=== PATIENT | male | born 1970 | race Caucasian/White ===

== ENCOUNTER 2016-04-20 20:11 | Inpatient (IN) ==
[2016-04-20] MEDS ORDERED: Clindamycin 600 MG/50 ML 600 MG/50 ML IV.SOLN IVPB ONE (21:37)
[2016-04-20] MEDS ORDERED: 0.9 % Sodium Chloride 500 ML IV.SOLN IV ONE (21:37)
--- NOTE | 2016-04-20 22:04 | Emergency Department Note ---
Disposition Clinical Impression: Foreign body (FB) in soft tissue, Open fracture of metacarpal bone of left hand Hand laceration involving tendon Qualifiers: Encounter type: initial encounter Laterality: left Qualified Code(s): S61.412A - Laceration without foreign body of left hand, initial encounter Disposition: Admitted As Inpatient Condition: Good Upper Extremity HPI - General Chief Complaint: ED Extremity Injury, Upper Stated Complaint: left hand injury Time Seen by Provider: 04/20/16 20:16 Source: patient Mode of arrival: other Limitations: no limitations Nursing Notes Reviewed: Yes Vital Signs Reviewed: Yes - History of Present Illness Injury Location: Left: hand Onset (ago): hour(s) Other Injuries: none Handedness: right Place: home Pain Severity: moderate Improves with: nothing Worsens with: movement of extremity, Palpation Context: laceration (brush grinder outside diameter slipped and hit left hand causing laceration and burining of glove. ) Associated symptoms: Reports: paresthesias (dorsal left 3rd-5th MCP joints.), suspects foreign body, laceration Treatments prior to arrival: dressing - Related Data Home Medications Medication Instructions Recorded Confirmed Multivitamin [One Daily Essential] 1 tab PO BID 04/20/16 04/20/16 Allergies Allergy/AdvReac Type Severity Reaction Status Date / Time Penicillins Allergy Rash Verified 04/20/16 21:45 All systems ED: reviewed and negative except as stated. Gastrointestinal: Denies: nausea, vomiting Musculoskeletal: Denies: neck pain Neurological: Reports: as per HPI, weakness (with extension of left 5th finger) , numbness. Denies: paresthesias Hematological/Lymphatic: Denies: easy bleeding, easy bruising Past Medical History - Past Medical History Attestation: Yes The following information was validated with the patient. Source: patient Medical history: Reports: no medical history Psychiatric history: Reports: no psych history - Social History Smoking Status: Never smoker Smokeless Tobacco Status: Yes Alcohol use: Reports: none Drug use: Reports: none Physical Exam - General Limitations: no limitations General appearance: alert, in no apparent distress - Head Head exam: atraumatic, normocephalic, normal inspection - Eye Eye exam: Present: normal appearance, PERRL. Absent: scleral icterus, conjunctival injection, periorbital swelling - ENT ENT exam: mucous membranes moist - Neck Neck exam: Present: normal inspection, full ROM, trachea midline - Chest Chest inspection: Present: normal inspection - Respiratory Respiratory exam: Absent: respiratory distress - Extremities Exam Extremities exam: Present: full ROM, tenderness, normal capillary refill - Expanded Upper Extremity Exam Shoulder exam: Present: normal inspection, full ROM. Absent: tenderness, swelling Arm exam: Present: normal inspection. Absent: tenderness, swelling Elbow exam: Present: normal inspection, full ROM. Absent: tenderness, swelling Forearm/Wrist exam: Present: normal inspection, full ROM. Absent: tenderness, swelling Hand exam: Present: full ROM, tenderness, laceration. Absent: swelling Hand L/R back image: 1 - 4cm x 2cm laceration - deep, with extensor tendon injuries - 4th and 5th top layers are shredded. Copious amounts of debris in the wound Neuromotor exam: Normal: wrist extension, thumb opposition, thumb IP flexion, thumb adduction, fingers 2-5 abduction Neurosensory exam: Normal: radial nerve, ulnar nerve, median nerve Hand tendon exam: Normal: flexor digitorum profundus (location), flexor digitorum superficialis (location). Abnorm: extensor tendon (location) ( weakness and pain with extension of left 5th finger) Vascular exam: Normal: capillary refill, radial pulse, ulnar pulse - Neurological Exam Neurological exam: Present: alert, oriented X3, CN II-XII intact, normal gait - Psychiatric Psychiatric exam: Present: normal affect, normal mood - Skin Skin exam: Present: warm, dry, normal color Course Course Narrative: Patient has a deep wound on dorsal left hand with extensor tendon injuries. There is a copious amount of melted glove fibers and other debris embedded in the tissues - even under the injured tendons. There is no active bleeding. Will consult with Dr. Marshall. Case discussed with Dr. Marshall. He will admit the patient. He recommends clinda ( PCN Allergic). Splint applied. Patient stable without complaints. Vital Signs Temperature 98.5 F 04/20/16 20:14 Pulse Rate 61 04/20/16 20:14 Respiratory Rate 20 04/20/16 20:14 Blood Pressure 137/81 04/20/16 20:14 O2 Sat by Pulse Oximetry 99 04/20/16 20:14 Temperature 98.5 F 04/20/16 20:14 Pulse Rate 61 04/20/16 20:14 Respiratory Rate 0 04/20/16 22:57 Blood Pressure 0/0 04/20/16 22:57 O2 Sat by Pulse Oximetry 99 04/20/16 20:14 Oxygen Delivery Oxygen Delivery Room Air Procedures - Orthopedic Splinting/Casting Injury #1 Side: left Upper Extremity Immobilizer: sling/shoulder immobilizer, volar splint (applied by the tech. Post application exam is normal) Extremity Injury, Upper - Medical Records Medical records reviewed: Yes I reviewed the patient's medical records. - Radiology Data Radiology results reviewed: Yes I reviewed the patient's radiology results. Hand X-Ray 04/20/16 20:16 IMPRESSION: Open acute cortical fracture of the dorsal 5th metacarpal with multiple adjacent soft tissue foreign bodies or osseous cortical fragments. D/ / Bob Anthony MD / Bob Anthony MD Interpreting Provider: Bob Anthony MD Attestation Statement - Attestation Attestation: I, Jason Ventura MD, personally performed a history and physical exam of the patient and discussed their management with the midlevel provicer, PAC/LPN [employer]. I reviewed the midlevel provider's note and agree with the documented findings, medical decision making, and plan of care. 45-year-old male who [facility] of a laceration to the dorsum of the left hand. Laceration was caused by a grinder outside diameter and involves extensor tendons on the left hand. On examination the patient is a well-developed well-nourished male in no acute distress. He is alert and oriented 3. There is no cyanosis or diaphoresis. The left hand has been immobilized in a splint. Patient evaluated by the PA. She discussed the case with the orthopedist, Dr. Marshall, and he will accept the patient to be admitted and plans on repairing the wound in the OR in the morning.
[2016-04-21] MEDS ORDERED: *HR* OxyCODONE Immed Rel 5 MG TABLET PO PRN ×2 (00:36→20:02)
[2016-04-21] MEDS ORDERED: *HR* Morphine 2 MG/ML SYRINGE IVP PRN ×2 (00:37→20:02)
[2016-04-21] MEDS ORDERED: D5% in 0.45% NACL 1,000 ML IVC SCH ×2 (00:45→20:02)
[2016-04-21 04:07] LABS: Basophils % 0.4 %; Eosinophils # 0.1 K/mcL (0.0-0.6); Eosinophils % 0.8 %; Hematocrit 41.6 % (37.5-50.1); Immature Granulocytes % 0.2 % (0-4); Lymphocytes # 2.6 K/mcL (0.6-4.6); Mean Corpuscular HGB Conc 33.7 g/dL (31.6-35.5); Mean Corpuscular Hemoglobin 32.7 pg (28.0-33.3); Mean Corpuscular Volume 97.2 fL (83.0-100.0); Mean Platelet Volume 9.8 fL (9.4-12.4); Monocytes # 0.8 K/mcL (0.0-1.3); Monocytes % 9.1 %; Neutrophils # 4.9 K/mcL (1.6-8.9); Platelet Count 207 K/mcL (140-400); Red Blood Count 4.28 M/mcL (4.19-5.50); Red Cell Distribution Width 12.7 % (11.5-14.5); Segmented Neutrophils % 58.5 %
[2016-04-21 04:24] LABS: BUN/Creatinine Ratio 20 (6-26); Blood Urea Nitrogen 17 mg/dL (8-26); Carbon Dioxide 25 mEq/L (19-29); Chloride 109 mEq/L (98-109); Glucose 98 mg/dL (70-99); Osmolality,Calculated 294 (280-300); Potassium 3.9 mEq/L (3.5-4.5); Sodium 141 mEq/L (136-145); eGFR For African Americans > 60 (> 60); eGFR For Non-African Americans > 60 (> 60)
[2016-04-21] MEDS: Clindamycin 600 MG/50 ML 600 MG/50 ML IV.SOLN IVPB SCH ×2 (05:58→12:26)
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
--- NOTE | 2016-04-21 16:53 | Anesthesia Evaluation PreOp ---
Date of Encounter: 04/21/16 Time of Encounter: 16:47 - Past History Planned Operation: l hand i&d Cardiac History: Denies any Significant Hx Pulmonary History: Denies Any Significant HX BATCH DUMPER History: Denies Any Significant HX Other Medical History: Denies Any Significant HX Anesthesia History: No Prior Anesthetic Complications, Past Anesthesia ( splenectomy) Alcohol Use: none Drug use: none Medications and Allergies Multivitamin [One Daily Essential] 1 tab PO BID 04/20/16 [History] Allergies Penicillins Allergy (Verified 04/20/16 21:45) Rash - Meds/Allergy Pre-op Review Medications Reviewed: Yes (cleocin at 1800) Allergies Reviewed: Yes Beta Blockers on Current Med List: No Anesthesia Results - Labs 04/21/16 03:47 04/21/16 03:47 Anesthesia Exam Vital Signs/O2 Sat/Glucose, Most Current Temp Pulse Resp BP Pulse Ox 04/21/16 15:47 98.5 F 68 16 127/79 97 Height: 1.91 Weight: 79 NPO (# of Hours): >8 - HEENT Pupil (Motor): Pupils equal, EOMI Mallampati: I Teeth: Poor dentition Oral Opening: Greater than 3 - BATCH DUMPER LOC: Oriented BATCH DUMPER Motor: Normal RUE, Normal LUE, Normal RLE, Normal LLE, Normal Face BATCH DUMPER Sensory: Normal: RUE, LUE, RLE, LLE, Face - Cardiac Rhythm: Regular Murmur: None - Pulmonary Breath Sounds: bilateral Clear Respiratory Effort: Symmetrical Anesthesia Assess/Plan ASA Score: 2 Modified Melquiades Scale for Level of Consciousness: Cooperative, oriented, and tranquil Anesthetic Plan: General Monitoring Plan: Standard Monitors Recovery Plan: PACU
[2016-04-21] MEDS ORDERED: Ringers Solution, Lactated 1,000 ML IVC SCH ×2 (17:00→20:02)
[2016-04-21] MEDS ORDERED: Lidocaine -MPF 1% 5 ML AMPUL ONE (17:20)
[2016-04-21] MEDS ORDERED: *HR* Promethazine 25 MG/ML VIAL IVP PRN ×2 (18:01→20:02)
[2016-04-21] MEDS ORDERED: *HR* HYDROmorphone (PF) 1 MG/ML SYRINGE IVP PRN ×2 (18:01→20:02)
[2016-04-21] MEDS ORDERED: Ondansetron 4 MG/2 ML VIAL IVP PRN ×2 (18:01→20:02)
--- NOTE | 2016-04-21 18:44 | Discharge Summary ---
Date of Encounter: 04/21/16 Time of Encounter: 18:37 - Discharge Diagnosis (1) Foreign body (FB) in soft tissue Priority: Primary Status: Acute (2) Hand laceration involving tendon Priority: Primary Status: Acute Qualifiers: Encounter type: initial encounter Laterality: left Qualified Code(s): S61.412A - Laceration without foreign body of left hand, initial encounter; S66.922A - Laceration of unspecified muscle, fascia and tendon at wrist and hand level, left hand, initial encounter - Discharge Medications Prescriptions: OxyCODONE/APAP 5/325 [Percocet 5/325 MG] 1 each PO Q4HR PRN #40 tablet PRN Reason: Pain Clindamycin [Cleocin] 450 mg PO Q6HR #36 capsule Home Medications: Multivitamin [One Daily Essential] 1 tab PO BID 04/20/16 [History] Clindamycin [Cleocin] 450 mg PO Q6HR #36 capsule 04/21/16 [Rx] OxyCODONE/APAP 5/325 [Percocet 5/325 MG] 1 each PO Q4HR PRN #40 tablet 04/21/16 [Rx] Allergies/Adverse Reactions: Allergies Penicillins Allergy (Verified 04/20/16 21:45) Rash Labs on day of discharge: Labs from last 24 hours 04/21/16 04/21/16 03:47 03:47 WBC 8.3 RBC 4.28 Hgb 14.0 Hct 41.6 MCV 97.2 MCH 32.7 MCHC 33.7 RDW 12.7 Plt Count 207 MPV 9.8 Immature Gran % 0.2 Seg Neutrophils % 58.5 Lymphocytes % 31.0 Monocytes % 9.1 Eosinophils % 0.8 Basophils % 0.4 Neutrophils # 4.9 Lymphocytes # 2.6 Monocytes # 0.8 Eosinophils # 0.1 Basophils # 0.0 Sodium 141 Potassium 3.9 Chloride 109 Carbon Dioxide 25 BUN 17 Creatinine 0.85 Est GFR ( Amer) > 60 Est GFR (Non-Af Amer) > 60 BUN/Creatinine Ratio 20 Glucose 98 Calculated Osmolality 294 Calcium 9.0 Date of admission: 04/20/16 22:16 Primary care physician: PCP NO Discharging clinician: Chaz Marshall Anticipated date of discharge: 04/22/16 - Patient Status Disposition: Home, Self-Care Condition: Good - Discharge Instructions Follow Up With: NO,PCP [Primary Care Provider] - Additional Instructions: Do not remove splint Elevate hand. Do not move fingers Use ice for 1 to 2 hour 3 times a day for the next 2 days. No lifting with the operative hand No sports or gym activities follow-up in 1 week with Funmilayo Marquis PA-C - Diet and Activity Diet: advance to your usual diet - Hospital Course Hospital course: Mr. Ramirez is a 45 year old male - Time Spent with Patient Total time spent providing and/or coordinating discharge services:
[2016-04-21] MEDS ORDERED: *HR* FentaNYL (PF) 100 MCG/2 ML VIAL ONE (18:52)
[2016-04-21] MEDS ORDERED: Ondansetron 4 MG/2 ML VIAL ONE (18:52)
[2016-04-21] MEDS ORDERED: *HR* Midazolam HCl 2 MG/2 ML VIAL ONE (18:52)
[2016-04-21] MEDS ORDERED: *HR* HYDROmorphone 2 MG/ML SYRINGE ONE (18:52)
[2016-04-21] MEDS ORDERED: *HR* Propofol 200 MG/20 ML VIAL IVP ONE (18:52)
[2016-04-21] MEDS ORDERED: Dexamethasone 4 MG/ML VIAL ONE (18:52)
--- NOTE | 2016-04-21 19:59 | Anesthesia Evaluation Post Op ---
Date of Encounter: 04/21/16 Time of Encounter: 19:30 - Vital Signs Vital Signs: Vital Signs/O2 Sat/Glucose, Most Current Temp Pulse Resp BP Pulse Ox 04/21/16 19:54 98.1 F 59 17 118/77 98 04/21/16 19:31 98.3 F 65 10 122/78 95 04/21/16 19:21 68 10 128/82 95 04/21/16 19:10 63 9 128/83 98 04/21/16 19:00 98 F 65 9 126/81 100 - Lungs Lungs: Clear Ascult./Percussion - Airway Airway: Non-obstructed - Cardiovascular Regular Rate - Mental Status Mental Status: Alert & Oriented, Answers Appropriately - Pain Pain Scale: 0 - Nausea Vomiting Nausea Vomiting: Not Present - Hydration Hydration: Ice chips - Discharge PostOp Status: Transfer Patient to floor
[2016-04-22] MEDS: Clindamycin 600 MG/50 ML 600 MG/50 ML IV.SOLN IVPB SCH ×3 (00:43→06:28)
[2016-04-22 07:18] VITALS: BP 118/67
[2016-04-22] MEDS ORDERED: Clindamycin 600 MG/50 ML 600 MG/50 ML IV.SOLN IVPB SCH (10:00)
--- NOTE | 2016-04-22 12:20 | Operative Note ---
Date of procedure: 04/21/16 Pre-op diagnosis: Left hand dorsal wound with possible tendon involvement and foreign body de Post-op diagnosis: same (Left hand dorsal wound secondary to trying to injury with extensor tendon injury to the extensor digitorum communis ring finger and extensor digitorum minimi, significant foreign body debris within the deep soft tissue) Procedure: Left hand irrigation and debridement, extensive removal of foreign body debris - grinder and plater wheel material along with love material within the subcutaneous tissue , muscle and periosteum. Repair of partial tendon laceration to the extensor digitorum communis to the ring finger. Repair of complete tendon laceration to the extensor digitti minimi Anesthesia: AMBER Surgeon: Chaz Marshall Store Person: Funmilayo Marquis Estimated blood loss (cc): 30 Specimen: 0 Condition: stable Disposition: PACU Procedure in Detail: The patient received IV antibiotics in the holding area, was brought into the operating room and was placed on the OR table in supine position with the affected upper extremity on a hand table. A sign in was performed. The patient underwent general anesthesia. A tourniquet was placed on the left arm close the axilla. The left upper extremity was then prepped and draped in usual sterile fashion. A timeout was performed. The patient had a 4 cm transverse wound across the ulnar side the dorsum of the left hand, midway down. The wound was loosely closed in the ER last night. Sutures removed. The wound was grossly contaminated with grind of body from material and material. The wound was then irrigated using pulse lavage. The left upper extremity was then elevated, exsanguinated with an Alfredo wrap and the tourniquet raised to a pressure 250 mmHg. The skin flaps were elevated, subcutaneous tissue was bluntly dissected, exposing the extensor mechanism. It was seen that the ulnar 50% of the extensor digitorum communis tendon to the ring finger was lacerated. The extensor digiti minimi was seen. On deeper exploration it was seen that the dorsum of the fourth metacarpal was degloved with periosteal stripping. There was significant foreign body debris within the interossei muscle on the ulnar side of the fourth metacarpal. Pipe Fittings Molder wheel debris was removed with curettes and and forceps were used to remove sharp spicules of what appeared to be plastic foreign body most likely from the glove. The periosteum and muscle was debrided making sure to remove as much of debris as possible. The open wound was then gently irrigated with normal saline using bulb syringes. I then explored the ulnar side, opening up the tendon sheath from distal medial stump. The fifth extensor compartment was opened up towards the DRUJ with the proximal stump was identified. Both ends were debrided as both with blackened from the grinder and plater, and cutting off 2 mm from each side. A repair was performed using 4-0 FiberWire placing a 4 strand cruciate locking suture. This was further reinforced with [id number] suture. The ulnar slip of the EDC to the ring finger was also repaired using 4-0 FiberWire, placing 2 figure-of- eight sutures. The MP joints was then flexed, with a good repair of the EDM and EDC tendons holding up well with no gapping. The tourniquet was then deflated. The wound was copiously irrigated with normal saline using the pulse lavage once again. Sharp debridement was cut was performed removing a 1 mm from the skin along the entire wound. Hemostasis obtained with bipolar cautery. The patient was injected with 110 mL of 0.5% Marcaine. Skin incision was then closed with 5-0 nylon mattress and simple sutures. Sterile dressings applied. The patient was placed into an extension splint. He was then extubated and taken to the recovery room in stable condition. The patient will be seen at postoperative week 1, for dressing changes, place into an MP extension cast, ending at the ring finger PIP joint, allowing partial PIP flexion.
== END 2016-04-22 12:17 | disposition home or self-care (01) | DRG 513 ==
LOC: EMEROO 20:11 → 3NENU 22:16
PROVIDERS: ADMIT Orthopaedic Surgery Hand Surgery; ATTEND Orthopaedic Surgery Hand Surgery